=== PATIENT | male | born 1985 | race African-American/Black ===

== ENCOUNTER 2016-12-18 00:30 | Emergency (ER) | payer OTHER ==
[2016-12-18] MEDS ORDERED: Albuterol/Ipratropium 3.0-0.5 MG/3 ML Neb Soln NEB ONE (00:47)
[2016-12-18] MEDS ORDERED: methylPREDNISolone Sodium Succinate 125 MG/2 ML SDV IM ONE (00:47)
[2016-12-18] MEDS ORDERED: Take Home: Albuterol 6.7 GM Inhaler, 1 Inhaler Pack INH ONE (01:21)
--- NOTE | 2016-12-18 01:36 | EDM.PDOC ---
ED HPI GENERAL MEDICAL PROBLEM - General Chief Complaint: Respiratory Problem Stated Complaint: Shortness of breath, wheezing Time Seen by Provider: 12/18/16 00:45 Source of Information: Reports: Patient History Limitations: Reports: No Limitations - History of Present Illness INITIAL COMMENTS - FREE TEXT/NARRATIVE: Pt. states that he has been having issues with asthma over the past few weeks. Pt. states that he was prescribed an albuterol inhaler in [place]. Pt. states that he is now out of the inhaler. He states that he has not been experiencing any cough, chest congestion, fever, or chills. He states that he has not been around any sick contacts. He states that he had asthma as a child. Onset Date: 12/17/16 Improves with: Reports: Rest Worsens with: Reports: Other (associated with fall allergies) - Related Data Allergies Allergy/AdvReac Type Severity Reaction Status Date / Time No Known Allergies Allergy Verified 12/18/16 00:46 ED ROS GENERAL - Review of Systems Review Of Systems: See Below Constitutional: Reports: No Symptoms HEENT: Reports: No Symptoms Respiratory: Reports: Shortness of Breath, Wheezing Cardiovascular: Reports: No Symptoms Endocrine: Reports: No Symptoms GI/Abdominal: Reports: No Symptoms : Reports: No Symptoms Musculoskeletal: Reports: No Symptoms Skin: Reports: No Symptoms Neurological: Reports: No Symptoms Psychiatric: Reports: No Symptoms Hematologic/Lymphatic: Reports: No Symptoms Immunologic: Reports: No Symptoms ED EXAM, GENERAL - Physical Exam Exam: See Below Exam Limited By: No Limitations General Appearance: Alert, No Apparent Distress Ears: Normal External Exam, Normal Canal, Normal TMs Nose: Normal Inspection, Normal Mucosa Throat/Mouth: Normal Inspection, Normal Lips, Normal Teeth, Normal Gums, No Airway Compromise Head: Atraumatic, Normocephalic Neck: Normal Inspection, Supple, Full Range of Motion Respiratory/Chest: Decreased Breath Sounds, Wheezing, Prolonged Expiration Cardiovascular: Normal Peripheral Pulses, Regular Rate, Rhythm, No Murmur GI/Abdominal: Normal Bowel Sounds, Soft, No Distention Back Exam: Normal Inspection, Full Range of Motion Extremities: Normal Inspection, Normal Range of Motion, Non-Tender, Normal Capillary Refill Neurological: Alert, Oriented, CN II-XII Intact, Normal Cognition, Normal Reflexes Psychiatric: Normal Affect, Normal Mood Skin Exam: Warm, Dry Course - Orders/Labs/Meds Orders: Active Orders 24 hr Category Date Time Status RT Aerosol Therapy [RC] ASDIRECTED Care 12/18/16 00:47 Active Chest 2V [CR] Stat Exams 12/18/16 00:46 Taken Meds: Medications Discontinued Medications Generic Name Dose Route Start Last Admin Trade Name Camilla PRN Reason Stop Dose Admin Albuterol 1 packet 12/18/16 01:21 12/18/16 01:29 Take Home: Albuterol 6.7 Gm, 1 Inh Pack INH 12/18/16 01:22 1 packet ONETIME ONE Administration Albuterol/Ipratropium 3 ml 12/18/16 00:47 12/18/16 00:39 Duoneb 3.0-0.5 Mg/3 Ml NEB 12/18/16 00:48 3 ml ONETIME ONE Administration Methylprednisolone Sodium Succinate 125 mg 12/18/16 00:47 12/18/16 01:00 Solu-Medrol IM 12/18/16 00:48 125 mg ONETIME ONE Administration - Radiology Interpretation Free Text/Narrative:: chest x-ray was negative - Re-Assessments/Exams Free Text/Narrative Re-Assessment/Exam: 12/18/16 01:54 Pt. was given a duoneb breathing treatment. He reported significant improvement in his breath Departure - Departure Time of Disposition: 01:35 Disposition: Home, Self-Care 01 Condition: Good Clinical Impression: Asthma - Discharge Information Instructions: Asthma, Adult Forms: ED Department Discharge Additional Instructions: Albuterol inhaler 2 puffs every 4-6 hours as needed for dyspnea. Prednisone 40mg once daily. Follow-up in clinic in 5-7 days. Return to ER if increased shortness of breath. - My Orders Last 24 Hours: My Active Orders 12/18/16 00:46 Chest 2V [CR] Stat 12/18/16 00:47 RT Aerosol Therapy [RC] ASDIRECTED - Assessment/Plan Last 24 Hours: My Active Orders 12/18/16 00:46 Chest 2V [CR] Stat 12/18/16 00:47 RT Aerosol Therapy [RC] ASDIRECTED Assessment:: asthma exacerbation Plan: Albuterol inhaler 2 puffs every 4-6 hours as needed for dyspnea. Prednisone 40mg once daily. Follow-up in clinic in 5-7 days. Return to ER if increased shortness of breath.
== END 2016-12-18 01:35 | disposition home or self-care (01) ==
LOC: VM.ED 00:30
DX: J45.909 Unspecified asthma, uncomplicated (principal)
CPT/HCPCS: 71020; 94640; 96372; 99285; A9270; J2930